=== PATIENT | female | born 1995 | race Two or more races ===

== ENCOUNTER 2024-06-18 07:12 | Emergency (ER) | payer OTHER ==
[~2024-06-18] VITALS: Ht 167.6 cm; Wt 52.2 kg
[2024-06-18 07:38] VITALS: BP 107/68; TEMP 98.1
[2024-06-18] MEDS ORDERED: HYDROCODONE/APAP 5/325MG TABLET ONE (07:49)
[2024-06-18] MEDS: HYDROCODONE/APAP 5/325MG TABLET PO ONE (08:04)
[2024-06-18] MEDS ORDERED: NAPR-1009 PO (09:14)
[2024-06-18] MEDS ORDERED: OXYC5TAB3 PO (09:14)
[2024-06-18] MEDS ORDERED: ACET-2605 PO (09:14)
[2024-06-18 10:01] VITALS: O2SAT 100
== END 2024-06-18 10:03 | disposition home or self-care (01) ==
LOC: ER 07:15
DX: S62.347A Nondisplaced fracture of base of fifth metacarpal bone, left hand, initial encounter for closed fracture (principal); W10.8XXA Fall (on) (from) other stairs and steps, initial encounter; Y93.89 Activity, other specified; Y92.89 Other specified places as the place of occurrence of the external cause; Y99.8 Other external cause status
CPT/HCPCS: 73630-TC

== ENCOUNTER 2024-06-22 14:36 | Emergency (ER) | payer OTHER ==
[~2024-06-22] VITALS: Ht 167.6 cm; Wt 52.2 kg
[~2024-06-22 14:36] MED LIST: ACET-2605 PO; NAPR-1009 PO; OXYC5TAB3 PO
[2024-06-22 15:02] VITALS: BP 113/66; TEMP 98
[2024-06-22 15:53] VITALS: O2SAT 99
== END 2024-06-22 15:54 | disposition home or self-care (01) ==
LOC: ER 14:42
DX: S92.355D Nondisplaced fracture of fifth metatarsal bone, left foot, subsequent encounter for fracture with routine healing (principal); Z60.2 Problems related to living alone; X58.XXXD Exposure to other specified factors, subsequent encounter

== ENCOUNTER 2024-07-27 03:30 | Emergency (ER) | payer OTHER ==
[~2024-07-27] VITALS: Ht 165.1 cm; Wt 49.9 kg
[2024-07-27 06:06] VITALS: BP 121/74; TEMP 98.1; O2SAT 99
== END 2024-07-27 06:06 | disposition home or self-care (01) ==
LOC: ER 03:30
DX: M25.572 Pain in left ankle and joints of left foot (principal); Z60.2 Problems related to living alone; Z87.81 Personal history of (healed) traumatic fracture
CPT/HCPCS: 73610-TC; 73630-TC

== ENCOUNTER 2024-10-13 11:35 | Emergency (ER) | payer OTHER ==
[~2024-10-13] VITALS: Ht 167.6 cm; Wt 52.2 kg
[2024-10-13] MEDS ORDERED: IPRATROPIUM NEB FS 0.5 MG/2.5 ML AMPUL.NEB ONE (12:32)
[2024-10-13] MEDS ORDERED: ALBUTEROL FS 2.5 MG/3 ML VIAL.NEB ONE (12:32)
[2024-10-13 12:40] VITALS: O2SAT 97
[2024-10-13 12:41] VITALS: O2SAT 97
[2024-10-13 12:52] VITALS: O2SAT 99
[2024-10-13] MEDS: ALBUTEROL FS 2.5 MG/3 ML VIAL.NEB NEB ONE (13:02)
[2024-10-13] MEDS: IPRATROPIUM NEB FS 0.5 MG/2.5 ML AMPUL.NEB NEB ONE (13:02)
[2024-10-13] MEDS ORDERED: PRED50TA PO (13:48)
[2024-10-13] MEDS ORDERED: ALBU8.5H8 INH (13:48)
[2024-10-13 14:24] VITALS: BP 104/64; TEMP 98.1; O2SAT 98
== END 2024-10-13 14:25 | disposition home or self-care (01) ==
LOC: ER 11:40
DX: J45.909 Unspecified asthma, uncomplicated (principal); R07.89 Other chest pain
CPT/HCPCS: 71045-TC; 94799-TC

== ENCOUNTER 2025-06-20 18:15 | Inpatient (IN) | payer MEDICAID, OTHER ==
[~2025-06-20] VITALS: Ht 167.6 cm; Wt 56.7 kg
[~2025-06-20 18:15] MED LIST changes: +ALBU8.5H8 INH; +PRED50TA PO
[2025-06-20 18:40] VITALS: O2SAT 100
[2025-06-20] MEDS ORDERED: Magnesium 1GM/D5W 100ML PREMIX 200 ML IV ONE (18:40)
[2025-06-20] MEDS: IPRATROPIUM NEB FS 0.5 MG/2.5 ML AMPUL.NEB NEB ONE ×2 (18:41→19:41)
[2025-06-20] MEDS: ALBUTEROL FS 2.5 MG/3 ML VIAL.NEB NEB ONE ×2 (18:41→19:41)
[2025-06-20] MEDS ORDERED: IPRATROPIUM NEB FS 0.5 MG/2.5 ML AMPUL.NEB ONE ×2 (18:45→19:39)
[2025-06-20] MEDS ORDERED: ALBUTEROL FS 2.5 MG/3 ML VIAL.NEB ONE ×2 (18:45→19:38)
[2025-06-20] MEDS: IV NS 0.9% 1,000 ML BAG IV ONE (18:51)
[2025-06-20] MEDS: Magnesium 1GM/D5W 100ML PREMIX 200 ML IV ONE (18:51)
[2025-06-20 19:40] VITALS: O2SAT 100
[2025-06-20 19:44] VITALS: O2SAT 97
[2025-06-20 19:54] VITALS: O2SAT 100
[2025-06-20] MEDS ORDERED: LORAZEPAM INJ 2 MG/ML VIAL ONE (20:45)
[2025-06-20] MEDS: LORAZEPAM INJ 2 MG/ML VIAL IV ONE (20:54)
[2025-06-20 21:11] LABS: PLATELET COUNT (AUTO) 212 K/uL (150-450); RED BLOOD CELL COUNT(AUTO) 4.03 MIL/uL (4.0-5.2); RED CELL DISTRIBUTION WIDTH 15.5 % (11.5-15.0); WHITE BLOOD COUNT (AUTO) 12.4 K/uL (4.3-11.0)
[2025-06-20 21:17] LABS: CALCIUM, SERUM 8.3 mg/dL (8.5-10.1); CREATININE 1.1 mg/dL (0.6-1.3); SODIUM SERUM 147 mmol/L (136-145); UREA NITROGEN, BLOOD 6 mg/dL (7-18)
[2025-06-20 21:33] LABS: NT-PRO BNP 331 pg/mL (0-125)
[2025-06-20] MEDS ORDERED: POTASSIUM CL. PREMIX PERIPHER. 50 ML ONE ×2 (21:39→22:59)
[2025-06-20] MEDS ORDERED: POTASSIUM CHLORIDE 20 MEQ TAB.PRT.SR PO ONE (21:40)
[2025-06-20] MEDS: POTASSIUM CL. PREMIX PERIPHER. 50 ML IV SCH (22:00)
[2025-06-20] MEDS: POTASSIUM CHLORIDE 20 MEQ TAB.PRT.SR PO ONE (22:00)
[2025-06-20] MEDS ORDERED: PRED10TA23 PO (23:09)
[2025-06-20] MEDS ORDERED: CIPR500S2 PO (23:09)
[2025-06-20] MEDS ORDERED: POTASSIUM CL. PREMIX PERIPHER. 100 ML ONE (23:10)
[2025-06-20] MEDS ORDERED: FAMOTIDINE/PF INJ 20 MG/2 ML VIAL IV ONE (23:34)
[2025-06-20] MEDS: FAMOTIDINE/PF INJ 20 MG/2 ML VIAL IV ONE (23:35)
[2025-06-21] MEDS ORDERED: ZOLPIDEM TARTRATE 5 MG TABLET PO PRN (00:30)
[2025-06-21] MEDS ORDERED: ACETAMINOPHEN 325 MG TABLET PO PRN (00:30)
[2025-06-21] MEDS ORDERED: ALPRAZOLAM 0.25 MG TABLET PO PRN (01:30)
[2025-06-21 04:00] VITALS: BP 94/62; TEMP 98.2; O2SAT 97
[2025-06-21 07:22] LABS: PLATELET COUNT (AUTO) 231 K/uL (150-450); RED BLOOD CELL COUNT(AUTO) 3.93 MIL/uL (4.0-5.2); RED CELL DISTRIBUTION WIDTH 15.5 % (11.5-15.0); WHITE BLOOD COUNT (AUTO) 14.7 K/uL (4.3-11.0)
[2025-06-21 07:50] LABS: CALCIUM, SERUM 9.2 mg/dL (8.5-10.1); CREATININE 0.7 mg/dL (0.6-1.3); SODIUM SERUM 142.0 mmol/L (136-145); UREA NITROGEN, BLOOD 5.0 mg/dL (7-18)
[2025-06-21 08:00] VITALS: BP 117/73; TEMP 97.9; O2SAT 97
[2025-06-21 08:05] VITALS: O2SAT 96
[2025-06-21] MEDS: ALBUTEROL FS 2.5 MG/3 ML VIAL.NEB NEB SCH (08:05)
[2025-06-21] MEDS: IPRATROPIUM NEB FS 0.5 MG/2.5 ML AMPUL.NEB NEB SCH (08:05)
[2025-06-21 08:28] VITALS: O2SAT 100
[2025-06-21] MEDS: CIPROFLOXACIN HCL 250 MG TABLET PO SCH (08:28)
[2025-06-21] MEDS: ENOXAPARIN SODIUM 40 MG/0.4 ML DISP.SYRIN SQ SCH (09:00)
[2025-06-21] MEDS ORDERED: PRED5TAB48 PO (09:03)
[2025-06-21] MEDS ORDERED: ALBU8.5H8 INH (09:03)
[2025-06-21] MEDS ORDERED: IPRA3AMP23 IH ×2 (09:03→09:07)
[2025-06-21 11:14] LABS: PREGNANCY TEST URINE QUAL NEGATIVE (NEGATIVE)
== END 2025-06-21 11:11 | disposition home or self-care (01) | DRG 141 ==
LOC: ER 18:18 → TELE1 23:42 → MEDSG1 06-21 07:57
PROVIDERS: ADMIT Internal Medicine; ATTEND Internal Medicine
DX: J45.901 Unspecified asthma with (acute) exacerbation (principal); E87.6 Hypokalemia; Z20.822 Contact with and (suspected) exposure to COVID-19; Z79.899 Other long term (current) drug therapy
CPT/HCPCS: 36415; 71045-TC; 80048-TC; 83735-TC; 83880; 84484-TC; 84703-TC; 85025-TC; 85378-TC; A4223; G0378; J1308; J2060; J2919; J3475; J3480; J7030; J7040; J7050